=== PATIENT | female | born 1975 | race Hispanic/Latino ===

== ENCOUNTER 2017-02-17 13:18 | Emergency (ER) | payer OTHER ==
[~2017-02-17] VITALS: Ht 172.7 cm; Wt 135.2 kg
--- NOTE | 2017-02-17 13:53 | ED MVC/FALL/TRAUMA COMPLAINT ---
History of Present Illness General Chief Complaint: Fall Stated Complaint: LOWER BACK PAIN RADIATES LEFT LEG, HAND PAIN Source: patient, old records Exam Limitations: no limitations Vital Signs & Intake/Output Vital Signs & Intake/Output Vital Signs Date Time Temp Pulse Resp B/P B/P Pulse O2 O2 Flow FiO2 Mean Ox Delivery Rate 02/17 1332 97.0 93 15 138/84 98 Room Air Room Air Allergies Coded Allergies: aspirin (Severe, HIVES 02/17/17) cat dander (Severe, HIVES 02/17/17) Uncoded Allergies: IVORY SOAP (Severe, HIVES 02/17/17) Reconcile Medications Oxycodone HCl/Acetaminophen (Percocet 5-325 MG Tablet) 5 MG-325 MG TABLET 1 TAB PO BID PRN pain Triage Note: PT TO ED FOR L LEG PAIN AND R HAND PAIN S/P FALL ON SUNDAY, DENIES HIT TO HEAD. PT TAKING DAILY PAIN MEDS AT HOME WITHOUT RELIEF. PT AMBULATORY TO TRIAGE. Triage Nurses Notes Reviewed? yes Onset: Abrupt Duration: day(s): (5), constant Timing: recent history Severity: mild, moderate Severity Numbers: 6 Injuries/Fall Location: upper extremity, lower extremity Method of Injury: fall Loss of Consciousness: no loss of consciousness No Modifying Factors: none Associated Symptoms: denies : No Patient currently breastfeeds: No HPI: Is a 41-year-old female with history of chronic back pain presents to ER for evaluation complaining of right fifth metacarpal left hip and left knee pain for the past 5 days after she fell while doing yardwork. She states she's been taking her medication however the pain persist. She denies hitting her head there is no loss of consciousness. She denies any neck back or other injury. The patient states is mechanical fall or so prodromal chest pain dizziness prior to the episode. She's been walking without difficulty however states that the stiffness or numbness persists despite medication. (SHARMILA STEARNS,ARIES) Past History Travel History Traveled to [place] past 21 day No Medical History Any Pertinent Medical History? 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 No (ARIES QUACH) Review of Systems Review of Systems Constitutional: Reports: see HPI. All Other Systems: Reviewed and Negative Comments Review of systems: See HPI, All other systems negative. Constitutional, no chills no fever, no malaise HEENT: no sore throat no congestion, no ear pain Cardiovascular: No chest pain , no palpitation , no orthopnea Skin: no rashes, no change in skin Respiratory: No dyspnea no cough no sputum GI: No nausea no vomiting, no diarrhea, : No dysuria Muscle skeletal: joint pain, no joint swelling, no back pain, no neck pain, Neurologic: No numbness no confusion, no headache Psych: No stress no depression,. Heme/endocrine: No bruising Immunology: No lymphadenopathy (ARIES QUACH) Physical Exam Physical Exam General Appearance: well developed/nourished, alert, awake Comments: Well-developed well-nourished patient in no apparent distress. HEENT: Atraumatic, extraocular motion intact Neck: Supple, FROM Back: FROM Cardiovascular: Regular rate and rhythms no murmurs rubs or gallops, Respiratory: Chest nontender.There were no bony deformities, no asymmetry. No respiratory distress. Patient speaking in full complete sentences. Breath sounds clear to auscultation bilaterally: NO W/R/R Shoulder: Atraumatic/Stable. FROM . Elbow: Atraumatic/stable. FROM. No laxity Upper arm/Forearm: Atraumatic. Nontender. No edema, 5 out of 5 licensing specialist strength noted to bilateral upper extremities Hand/Wrist: Tenderness over the distal aspect of the right fifth metacarpal no swelling no obvious deformity Atraumatic/stable. Skin intact. FROM Pulses: Normal/equal radial pulses bilaterally. Brisk cap refill Hip/Pelvis: Atraumatic/Stable. FROM. No pain with pelvic compression Knee: Atraumatic/stable. FROM. No joint swelling, no effusion. No laxity. Negative carmela/anterior drawer test. No pain with ROM Leg: Healing ecchymosis over the lateral distal left thigh Nontender. No edema, 5 out of 5 strength in the lower extremity, normal dorsiflexion of great toe bilaterally, gross sensation is intact, patellar tendon reflex 2+ bilaterally. Ankle/Foot: Atraumatic/stable. Skin intact. FROM. No swelling, no effusion. No laxity on exam Pulses: Normal/equal DP/PT pulses bilaterally. Brisk cap refill Neuro: awake, alert, and oriented to person, place and time. There were no obvious focal neurologic abnormalities. Skin: Warm & dry;No appreciable rash on exposed skin Psych: Mood affect normal, normal memory normal judgment. Core Measures ACS in differential dx? No Severe Sepsis Present: No Septic Shock Present: No (ARIES QUACH) Progress Differential Diagnosis: ext injury, fx,sprai,contusion Plan of Care: Orders Procedure Date/time Status XRY-AP PELVIS 02/17 1414 Active XRY-KNEE COMPLETE LEFT 02/17 1359 Active XRY-HAND, 3 View RIGHT 02/17 1359 Active I discussed with the patient at length all of their results. I had an extensive conversation regarding need for close follow up with their primary care physician this week as well as return precautions. I answered all of their questions, they feel comfortable with the plan and follow-up care. I discussed with the patient/family the medications that they will receive. I gave them signs and symptoms that could indicate an adverse reaction. I have advised them to limit their activities until they can see how they respond to the medication. (SHARMILA STEARNS,ARIES) Diagnostic Imaging: Viewed by Me: Radiology Read. Discussed w/RAD: Radiology Read. Radiology Impression: PATIENT: FABIENNE CHI PRESENT AGE: 41 PATIENT ACCOUNT NO: [id number] : 77 LOCATION: [facility] ORDERING PHYSICIAN: ARIES STEARNS SERVICE DATE: 02/17/17 EXAM TYPE: RAD - XRY- HAND, RIGHT EXAMINATION: XR HAND, RIGHT CLINICAL INFORMATION: Fall and pain COMPARISON: None TECHNIQUE: AP, lateral, and oblique views of the right hand. FINDINGS: The bones and soft tissues are normal. No fracture. Alignment is anatomic. Joint spaces are maintained. No erosions or soft tissue calcifications. IMPRESSION: Normal right hand. DICTATED BY: ELEAZAR GALVEZ MD DATE/TIME DICTATED:02/17/171441 ROVING INSPECTOR:[email or web address] DATE/TIME TRANSCRIBED:02/17/171441 CONFIDENTIAL, DO NOT COPY WITHOUT APPROPRIATE AUTHORIZATION. <Electronically signed in Other Vendor System> SIGNED BY: ELEAZAR GALVEZ MD 02/17/171446, PATIENT: FABIENNE CHI PRESENT AGE: 41 PATIENT ACCOUNT NO: [id number] : 77 LOCATION: [facility] ORDERING PHYSICIAN: ARIES STEARNS SERVICE DATE: 02/17/17 EXAM TYPE: RAD - XRY-AP PELVIS EXAMINATION: XR PELVIS CLINICAL INFORMATION: Status post fall. Left hip pain. COMPARISON: None TECHNIQUE: AP view of the pelvis. FINDINGS : The bones and soft tissues are normal. No fracture. Sacroiliac and hip joints are normal. Pubic symphysis is normal. No abnormal soft tissue calcifications. IMPRESSION: No evidence of acute osseous abnormality in the pelvis. Essentially unremarkable examination. DICTATED BY: BRIAN NAPIER,ANAL DATE/TIME DICTATED:1441 ROVING INSPECTOR:[email or web address] DATE/TIME TRANSCRIBED:02/17/171441 CONFIDENTIAL, DO NOT COPY WITHOUT APPROPRIATE AUTHORIZATION. <Electronically signed in Other Vendor System> SIGNED BY: BRIAN NAPIER,ANAL 02/17/171446, PATIENT: FABIENNE CHI PRESENT AGE: 41 PATIENT ACCOUNT NO: [id number] : 77 LOCATION: [facility] ORDERING PHYSICIAN: ARIES STEARNS SERVICE DATE: 02/17/175829 EXAM TYPE: RAD - XRY-KNEE COMPLETE LEFT EXAMINATION: XR KNEE, LEFT CLINICAL INFORMATION: Status post fall. Left knee pain. Rule out fracture. COMPARISON: None TECHNIQUE: Four views of the left knee. FINDINGS: There is no evidence of fracture or dislocation. The bones are unremarkable. Joint spaces are maintained. No suprapatellar joint effusion. No soft tissue calcifications. Multiple serpiginous tubular densities are noted in the superficial soft tissues of the distal thigh and proximal leg representing varicose veins, recommend clinical correlation. IMPRESSION: No evidence of acute fracture or dislocation in the left knee. DICTATED BY: BRIAN NAPIER,ANAL DATE/TIME DICTATED:02/17/171437 ROVING INSPECTOR:[email or web address] DATE/TIME TRANSCRIBED:1437 CONFIDENTIAL, DO NOT COPY WITHOUT APPROPRIATE AUTHORIZATION. < Electronically signed in Other Vendor System> SIGNED BY: BRIAN NAPIER,ANAL 1445 (ARIES QUACH) Departure Departure Time of Disposition: 1449 Disposition: HOME OR SELF CARE Condition: Stable Clinical Impression Primary Impression: Hand contusion Secondary Impressions: Contusion of leg Referrals: UNKNOWN (PCP/Family) Additional Instructions: rest, ice, percocet for breakthrough pain.this is a narcotic highly addictive. no driving or drinking alcohol. follow up with your pmd on sunday, return to the ER with any concerns Departure Forms: Customer Survey General Discharge Information Prescriptions: Current Visit Scripts Oxycodone HCl/Acetaminophen (Percocet 5-325 MG Tablet) 1 TAB PO BID PRN pain #10 TAB (ARIES QUACH) PA/DELIVERY ANALYST Co-Sign Statement Statement: ED Attending supervision documentation- [X] I saw and evaluated the patient. I have also reviewed all the pertinent lab results and diagnostic results. I agree with the findings and the plan of care as documented in the PA's/DELIVERY ANALYST's documentation. [X] I have reviewed the ED Record and agree with the PA's/DELIVERY ANALYST's documentation. [] Additions or exceptions (if any) to the PAs/DELIVERY ANALYST's note and plan are summarized below: [] (DEBORA NAPIER,ELLI Cai)
--- NOTE | 2017-02-17 14:45 | RADIOLOGY REPORT ---
EXAMINATION: XR KNEE, LEFT CLINICAL INFORMATION: Status post fall. Left knee pain. Rule out fracture. COMPARISON: None TECHNIQUE: Four views of the left knee. FINDINGS: There is no evidence of fracture or dislocation. The bones are unremarkable. Joint spaces are maintained. No suprapatellar joint effusion. No soft tissue calcifications. Multiple serpiginous tubular densities are noted in the superficial soft tissues of the distal thigh and proximal leg representing varicose veins, recommend clinical correlation. IMPRESSION: No evidence of acute fracture or dislocation in the left knee.
--- NOTE | 2017-02-17 14:47 | RADIOLOGY REPORT ---
EXAMINATION: XR PELVIS CLINICAL INFORMATION: Status post fall. Left hip pain. COMPARISON: None TECHNIQUE: AP view of the pelvis. FINDINGS: The bones and soft tissues are normal. No fracture. Sacroiliac and hip joints are normal. Pubic symphysis is normal. No abnormal soft tissue calcifications. IMPRESSION: No evidence of acute osseous abnormality in the pelvis. Essentially unremarkable examination.
--- NOTE | 2017-02-17 14:47 | RADIOLOGY REPORT ---
EXAMINATION: XR HAND, RIGHT CLINICAL INFORMATION: Fall and pain COMPARISON: None TECHNIQUE: AP, lateral, and oblique views of the right hand. FINDINGS: The bones and soft tissues are normal. No fracture. Alignment is anatomic. Joint spaces are maintained. No erosions or soft tissue calcifications. IMPRESSION: Normal right hand.
[2017-02-17] MEDS ORDERED: PERCOCET 5-3251 EACH PO (14:50)
[2017-02-17 15:46] VITALS: BP 101/64
== END 2017-02-17 15:52 ==
LOC: ERH 13:18
DX: S60.221A Contusion of right hand, initial encounter (principal); S80.12XA Contusion of left lower leg, initial encounter; W19.XXXA Unspecified fall, initial encounter; Y93.H9 Activity, other involving exterior property and land maintenance, building and construction; Y92.017 Garden or yard in single-family (private) house as the place of occurrence of the external cause
CPT/HCPCS: 72170; 73130-RT; 73562-LT